=== PATIENT | female | born 1955 | race Two or more races ===

== ENCOUNTER 2016-12-08 05:07 | Emergency (ER) | payer OTHER ==
[2016-12-08] MEDS ORDERED: CYCLOBENZAPRINE HCL 10 MG TABLET PO ONE (06:29)
[2016-12-08] MEDS ORDERED: HYDROCODONE/ACETAMINOPHEN 5-325 MG 6 TAB/DSPK PO PRN (06:29)
[2016-12-08] MEDS ORDERED: KETOROLAC TROMETHAMINE 60 MG/2 ML SDV IM ONE (06:29)
--- NOTE | 2016-12-08 06:29 | ER Document Report ---
ED Neck/Back Problem - General Mode of Arrival: Ambulatory Information source: Patient TRAVEL OUTSIDE OF THE [place] IN LAST 30 DAYS: No - HPI Patient complains to provider of: Pain, Neck Onset: Yesterday - morning Where: Home Onset: Sudden Associated symptoms: Other - see above - General Chief Complaint: Neck Pain < 24hrs old Stated Complaint: NECK PAIN Notes: 61 year old female with history of hyperlipidemia, diabetes, hypertension, and migraine headaches presents to the ED complaining of left sided neck pain that started suddenly yesterday morning while sleeping. Patient describes the pain as "sharp and shooting" and it radiates to her head. Patient has tried using a muscle relaxer and Tylenol, but to no relief. Patient also reports to trying a hot shower to soothe the pain away, but explains that it did not work. Patient' s receives primary care at [facility]. (VALERIA CARLOS) - Related Data Allergies/Adverse Reactions: No Known Allergies Allergy (Verified 12/08/16 05:16) Past Medical History - General Information source: Patient - Social History Smoking Status: Never Smoker Chew tobacco use (# tins/day): No Frequency of alcohol use: Social Drug Abuse: None Family History: Reviewed & Not Pertinent Patient has suicidal ideation: No - Past Medical History Cardiac Medical History: Reports: Hx Hypercholesterolemia, Hx Hypertension Pulmonary Medical History: Reports: Hx Bronchitis Neurological Medical History: Reports: Hx Migraine Endocrine Medical History: Reports: Hx Diabetes Mellitus Type 2 Renal/ Medical History: Denies: Hx Peritoneal Dialysis Psychiatric Medical History: Denies: Hx Depression Past Surgical History: Reports: Hx Cardiac Catheterization, Hx Hysterectomy - Immunizations Hx Diphtheria, Pertussis, Tetanus Vaccination: No Review of Systems - Review of Systems Constitutional: No symptoms reported EENT: No symptoms reported Cardiovascular: No symptoms reported Respiratory: No symptoms reported Gastrointestinal: No symptoms reported Genitourinary: No symptoms reported Female Genitourinary: No symptoms reported Musculoskeletal: See HPI, Neck pain - left Skin: No symptoms reported Hematologic/Lymphatic: No symptoms reported Neurological/Psychological: See HPI, Headaches -: Yes All other systems reviewed and negative Physical Exam - General General appearance: Alert In distress: None - HEENT Head: Normocephalic, Atraumatic Eyes: Normal Extraocular movements intact: Yes Pupils: PERRL Neck: Other - Tenderness to palpation of the left posterior cervical chain that radiates to the left trapezius and scapular muscles. Severe stabbing left neck pain while trying to rotate head. - Respiratory Respiratory status: No respiratory distress - Cardiovascular Rhythm: Regular - Abdominal Inspection: Normal - Back Back: Normal - Extremities General upper extremity: Normal inspection, Normal ROM General lower extremity: Normal inspection, Normal ROM - Neurological Neuro grossly intact: Yes - Psychological Associated symptoms: Normal affect, Normal mood - Skin Skin Temperature: Warm Skin Moisture: Dry Skin Color: Normal - Vital signs Vitals: Temp Pulse Resp BP Pulse Ox 97.6 F 74 16 150/92 H 97 12/08/16 05:09 12/08/16 05:09 12/08/16 05:09 12/08/16 05:09 12/08/16 05:09 Discharge - Discharge Clinical Impression: Torticollis, acute Condition: Stable Disposition: HOME, SELF-CARE Additional Instructions: Torticollis: You have torticollis, often called "wry neck." This is due to spasm of neck muscles -- locking the neck into a crooked position. Many different problems can lead to torticollis, such as a minor injury, sleeping with tension on the neck, or inflammation in the glands of the neck. Torticollis is usually treated with heat to relax the neck muscles, but the physician may recommend cold packs if a minor injury is suspected as the cause. Muscle relaxing and antiinflammatory medicine are often prescribed. You may need a neck collar to support your head. Improvement is usually rapid. Usually, the neck can be moved fully within two days, although some pain may persist for a few weeks. Call the doctor at once if you worsen, or if you develop high fever, severe headache, numbness or weakness, or other alarming symptoms. TAKE THE FLEXERIL AND HYDROCODONE WHEN YOU GET HOME. REST IN A COMFORTABLE POSITION. AVOID TURNING YOUR HEAD TO THE LEFT. TAKE THE MEDICATION PRESCRIBED. TAKE ALEVE OR MOTRIN FOR THE ANTI-INFLAMMATORY EFFECT. USE MOIST HEAT. FOLLOW UP WITH YOUR DOCTOR IF NOT IMPROVING. RETURN TO THE EMERGENCY ROOM IF ANY NEW OR WORSENING SYMPTOMS. Prescriptions: Cyclobenzaprine HCl [Flexeril 5 mg Tablet] 5 mg PO TID PRN #15 tablet PRN Reason: Oxycodone HCl/Acetaminophen [Percocet 5-325 mg Tablet] 1 - 2 tab PO ASDIR PRN # 15 tablet PRN Reason: Scribe Attestation: 12/08/16 06:34 I personally performed the services described in the documentation, reviewed and edited the documentation which was dictated to the scribe in my presence, and it accurately records my words and actions. (BREA MEZA) Scribe Documentation - Scribe Written by Susan:: Susan Mcclure, 12/08/2016 0654 acting as scribe for :: Elyse
[2016-12-08 07:12] VITALS: BP 150/99
== END 2016-12-08 07:07 | disposition home or self-care (01) ==
LOC: ER 05:07
DX: M43.6 Torticollis (principal); M54.2 Cervicalgia; R51 Headache; E11.9 Type 2 diabetes mellitus without complications; I10 Essential (primary) hypertension; Z86.69 Personal history of other diseases of the nervous system and sense organs
CPT/HCPCS: 99283; 96372; J1885

== ENCOUNTER → 2017-03-08 | Outpatient (CLI) | payer OTHER ==
--- NOTE | 2017-03-08 12:37 | RADIOLOGY REPORT (SQ) ---
EXAM DESCRIPTION: U/S RETROPERITON (RENAL/AORTA) COMPLETED DATE/TIME: 03/08/2017 9:58 am REASON FOR STUDY: CKD III (N18.3) N18.3 CHRONIC KIDNEY DISEASE, STAGE 3 (MODERATE) COMPARISON: None. TECHNIQUE: Dynamic and static grayscale images acquired of the kidneys and bladder and recorded on P ACS. Additional selected color Doppler and spectral images recorded. LIMITATIONS: None. FINDINGS: RIGHT KIDNEY: Normal size, 9.6 cm. Slightly lobulated contour. No hydronephrosis. No st ones are seen. LEFT KIDNEY: Normal size, 10.1 cm. Lobulated contour. No hydronephrosis. No stones. BLADDER: No masses. Ureteral jets were not seen. OTHER FINDINGS: No other significant finding. IMPRESSION: There is thinning of the renal cortices and there is a slightly lobulated appearance to each kidney. There is no hydronephrosis. No renal calculus is seen. TECHNICAL DOCUMENTATION: JOB ID: [id number] [employer]- All Rights Reserved
== END ==
LOC: RAD 07:33
PROVIDERS: ATTEND Internal Medicine Nephrology
DX: N18.3 Chronic kidney disease, stage 3 (moderate) (principal)
CPT/HCPCS: 76770

== ENCOUNTER 2020-02-07 13:15 | Inpatient (IN) | payer SELFPAY ==
--- NOTE | 2020-02-07 14:24 | ER Document Report ---
ED Cardiac - General Chief Complaint: Chest Pain Stated Complaint: SHORTNESS OF BREATH Time Seen by Provider: 02/07/20 13:53 Mode of Arrival: Ambulatory Information source: Patient Notes: 65-year-old female past medical history significant for migraines, hyperlipidemia, hypertension, diabetes, SVT status post ablation in 2012 presents to the emergency room with right midsternal chest pain with shortness of breath with exertion. Patient states her symptoms started yesterday afternoon around 1:00 while at work lasted approximately 30 minutes were alleviated after taking aspirin. States she started having chest pain again around 9 PM last night took aspirin and went to bed. Woke up this morning around 9 AM with worsening chest pain. Describes it as sharp, nonradiating. Denies any trauma or injury. No heavy lifting, no pushing or pulling with her right arm. States she took 2 more aspirin this morning. Not currently on any medications for her hypertension or hyperlipidemia. States her diabetes is diet-controlled. Currently without a primary care physician. Denies any recent travel. No COVID 19 exposure. No fevers. TRAVEL OUTSIDE OF THE [place] IN LAST 30 DAYS: No - Related Data Allergies/Adverse Reactions: No Known Allergies Allergy (Verified 12/08/16 05:16) Home Medications: bp meds, asa Past Medical History - General Information source: Patient - Social History Smoking Status: Never Smoker Chew tobacco use (# tins/day): No Frequency of alcohol use: Rare Drug Abuse: None Lives with: Family Family History: Reviewed & Not Pertinent, DM, Hypertension Patient has homicidal ideation: No - Past Medical History Cardiac Medical History: Reports: Hx Hypercholesterolemia, Hx Hypertension Pulmonary Medical History: Reports: Hx Bronchitis Neurological Medical History: Reports: Hx Migraine Endocrine Medical History: Reports: Hx Diabetes Mellitus Type 2 Renal/ Medical History: Denies: Hx Peritoneal Dialysis Psychiatric Medical History: Denies: Hx Depression Past Surgical History: Reports: Hx Cardiac Catheterization, Hx Hysterectomy - Immunizations Hx Diphtheria, Pertussis, Tetanus Vaccination: No Review of Systems - Review of Systems Constitutional: No symptoms reported EENT: No symptoms reported Cardiovascular: Chest pain Respiratory: Short of breath Gastrointestinal: No symptoms reported Musculoskeletal: No symptoms reported Skin: No symptoms reported -: Yes All other systems reviewed and negative Physical Exam - Vital signs Vitals: Temp Pulse Resp BP Pulse Ox 98.7 F 83 18 182/100 H 96 02/07/20 13:59 02/07/20 13:59 02/07/20 13:59 02/07/20 13:59 02/07/20 13:59 - General General appearance: Appears well, Alert In distress: Mild - HEENT Head: Normocephalic, Atraumatic Eyes: Normal Pupils: PERRL - Respiratory Respiratory status: No respiratory distress Chest status: Nontender Breath sounds: Normal Chest palpation: Normal - Cardiovascular Rhythm: Regular Heart sounds: Normal auscultation Murmur: No - Neurological Neuro grossly intact: Yes Cognition: Normal Orientation: AAOx4 [place] Coma Scale Eye Opening: Spontaneous [place] Coma Scale Verbal: Oriented Peter Coma Scale Motor: Obeys Commands [place] Coma Scale Total: 15 Speech: Normal Motor strength normal: LUE, RUE, LLE, RLE Sensory: Normal - Skin Skin Temperature: Warm Skin Moisture: Dry Skin Color: Normal Course - Re-evaluation Re-evalutation: 02/07/20 14:25 EKG interpreted by ER physician Dr. Yang. No acute STEMI 02/07/20 16:18 Heart score = 4 02/07/20 17:00 All test results were reviewed with the patient. Aware of need for admission. Patient is agreeable to admission. - Vital Signs Vital signs: Temp Pulse Resp BP Pulse Ox 98.0 F 63 16 189/97 H 97 02/07/20 16:21 02/07/20 16:21 02/07/20 16:21 02/07/20 18:08 02/07/20 16:21 - Laboratory Result Diagrams: 02/07/20 14:02 02/07/20 14:02 Laboratory results interpreted by me: 02/07/20 02/07/20 02/07/20 14:02 14:02 17:00 Chloride 109 H BUN 38 H Creatinine 2.74 H Est GFR ( Amer) 21 L Est GFR (MDRD) Non-Af 17 L NT-Pro-B Natriuret Pep 1100 H Total Protein 6.0 L Albumin 3.3 L Urine Protein >=500 H Urine Blood SMALL H Ur Leukocyte Esterase MODERATE H - Diagnostic Test Radiology reviewed: Reports reviewed - EKG Interpretation by Me EKG shows normal: Sinus rhythm Rate: Normal Additional EKG results interpreted by me: 02/07/20 14:24 EKG - Consults Lindsey Merritt Time consulted: 17:25 Reason for consultation: 02/07/20 17:52 admission Consulted provider: other - Agrees with evaluation and plan recommends call to Dr. Campo for admission Dr. aCmpo Time consulted: 17:30 - Wants call to Composing Machine Operator/Tender due to Hypertensive Urgency Reason for consultation: 02/07/20 17:54 admission for Chest pain, Renal injury, Hypertensive urgency. Dr. Peter Zavala Time consulted: 18:11 Reason for consultation: 02/07/20 18:11 admission for Chest pain, Hypertensive Urgency, Renal Insufficiency. Consulted provider: will come to ER Dr. Peter Ramirez Time consulted: 19:15 Reason for consultation: 02/07/20 20:16 update on admission criteria. Discharge - Discharge Clinical Impression: Hypertensive urgency, Renal insufficiency Chest pain Qualifiers: Chest pain type: other chest pain Qualified Code(s): R07.89 - Other chest pain Condition: Fair Disposition: ADMITTED INPATIENT Admitting Provider: Lucas (Composing Machine Operator/Tender) Unit Admitted: ICU
[2020-02-07] MEDS ORDERED: NITROGLYCERIN 0.4 MG/TAB 25 TAB/BOTTLE SL PRN (14:25)
[2020-02-07 14:40] LABS: ABSOLUTE BASOPHILS # (AUTO) 0.1 10^3/uL (0.0-0.2); ABSOLUTE EOSINOPHILS # (AUTO) 0.1 10^3/uL (0.0-0.6); ABSOLUTE LYMPHOCYTES (AUTO) 1.6 10^3/uL (0.5-4.7); ABSOLUTE MONOCYTES (AUTO) 0.5 10^3/uL (0.1-1.4); ABSOLUTE NEUT (AUTO) 6.4 10^3/uL (1.7-8.2); BASOPHILS % (AUTO) 0.7 % (0-2); EOSINOPHILS % (AUTO) 1.1 % (0-6); HEMATOCRIT 39.5 % (36.0-47.0); HEMOGLOBIN 13.7 g/dL (12.0-15.5); MEAN CORPUSCULAR HEMOGLOBIN 30.8 pg (27.0-33.4); MEAN CORPUSCULAR HGB CONC 34.6 g/dL (32.0-36.0); MEAN CORPUSCULAR VOLUME 89 fl (80-97); MONOCYTES % (AUTO) 5.8 % (3-13); PLATELET COUNT 297 10^3/uL (150-450); RED BLOOD COUNT 4.44 10^6/uL (3.72-5.28); SEGMENTED NEUTROPHILS % (AUTO) 74.4 % (42-78); TOTAL CELLS COUNTED % (AUTO) 100 %; WHITE BLOOD COUNT 8.6 10^3/uL (4.0-10.5)
[2020-02-07 14:46] LABS: ALBUMIN 3.3 g/dL (3.5-5.0); ALKALINE PHOSPHATASE 71 U/L (38-126); ASPARTATE AMINO TRANSFERASE 23 U/L (14-36); BILIRUBIN,TOTAL 0.3 mg/dL (0.2-1.3); BLOOD UREA NITROGEN 38 mg/dL (7-20); CALCIUM 9.2 mg/dL (8.4-10.2); CHLORIDE 109 mmol/L (98-107); CREATINE KINASE 127 U/L (30-135); GLUCOSE 109 mg/dL (75-110); POTASSIUM 4.7 mmol/L (3.6-5.0)
[2020-02-07 14:51] LABS: CARBON DIOXIDE 24 mmol/L (22-30)
[2020-02-07 14:53] LABS: ANION GAP 5 (5-19)
[2020-02-07 14:58] LABS: CREATINE KINASE MB 2.11 ng/mL (<4.55)
[2020-02-07 15:14] LABS: TROPONIN I < 0.012 ng/mL
[2020-02-07] MEDS ORDERED: HYDRALAZINE HCL INJ/PF 20 MG/1 ML SDV IV ONE (16:36)
--- NOTE | 2020-02-07 16:53 | RADIOLOGY REPORT (SQ) ---
EXAM DESCRIPTION: CHEST SINGLE VIEW IMAGES COMPLETED DATE/TIME: 02/07/2020 4:12 pm REASON FOR STUDY: chest pain COMPARISON: 08/24/2016 EXAM PARAMETERS: NUMBER OF VIEWS: One view. TECHNIQUE: Single frontal radiographic view of the chest acquired. RADIATION DOSE: NA LIMITATIONS: None. FINDINGS: LUNGS AND PLEURA: No opacities, masses or pneumothorax. No pleural effusion. MEDIASTINUM AND HILAR STRUCTURES: No masses. Contour normal. HEART AND VASCULAR STRUCTURES: Heart normal in size. Normal vasculature. BONES: No acute findings. HARDWARE: None in the chest. OTHER: No other significant finding. IMPRESSION: NO ACUTE RADIOGRAPHIC FINDING IN THE CHEST. TECHNICAL DOCUMENTATION: JOB ID: [id number] 2010 [employer]- All Rights Reserved Reading location - IP/workstation name: [email or web address]
[2020-02-07 17:29] LABS: APPEARANCE,URINE SLIGHTLY-CLOUDY; BILIRUBIN,URINE NEGATIVE (NEGATIVE); COLOR,URINE YELLOW; GLUCOSE, URINE NEGATIVE (NEGATIVE); KETONES,URINE NEGATIVE (NEGATIVE); LEUKOCYTE ESTERASE,URINE MODERATE (NEGATIVE); NITRITE,URINE NEGATIVE (NEGATIVE); PROTEIN,URINE >=500 mg/dL (NEGATIVE); URINE SPECIFIC GRAVITY 1.009; UROBILINOGEN,URINE NEGATIVE mg/dL (<2.0)
[2020-02-07] MEDS ORDERED: ONDANSETRON HCL INJ/PF 4 MG/2 ML SDV IV ONE (17:50)
[2020-02-07] MEDS ORDERED: ONDANSETRON HCL INJ/PF 4 MG/2 ML SDV IV PRN (20:10)
--- NOTE | 2020-02-07 21:22 | CRITICAL CARE ADMISSION REPORT ---
HPI Date:: 02/07/20 Time:: 21:00 Reason for ICU Reason:: Hypertensive urgency HPI: Ms. Zambrano is a 65-year-old female with a past medical history of migraines, hyperlipidemia, hypertension, [id number] diabetes, SVT status post ablation in 2012. She presented to the emergency room today with complaints of intermittent right sternal chest pain associated with shortness of breath with exertion. She states her symptoms started yesterday afternoon. and lasted approximately 30 minutes this was alleviated after taking aspirin. She again developed chest pain around 9 PM last night took aspirin and went to bed. Woke up this morning with worsening chest pain and increasing shortness of breath on exertion. She describes her chest pain as intermittent sharp and nonradiating, it is not reproducible. She denies any nausea, vomiting, diarrhea, denies fever or chills. Denies any recent travel denies any sick contacts has had no COVID- 19 exposure. She states she has not been taking her antihypertensives as he has recently lost her job has no insurance and is unable to fill her prescriptions. Upon presentation to the ED her blood pressure was noted to be at 182/100 with a mean of 127 heart rate of 83 her blood pressure did go up to 216/113 with a heart rate of 63 she was given 20 mg of hydralazine as well as 1 sublingual nitroglycerin her blood pressure did come down to 189/87. EKG showed normal sinus rhythm no ST elevations. She did have a previous cardiac cath that showed mild CAD no interventions performed. She does have known chronic kidney disease her baseline creatinine is unknown today's creatinine is 2.74. Chest x-ray was clear. She is admitted to the ICU for further management of her hypertensive urgency. - Diagnosis/Plan (1) Chest pain Qualifiers: Chest pain type: other chest pain Qualified Code(s): R07.89 - Other chest pain; R07.8 - Other chest pain Is this a current diagnosis for this admission?: Yes Plan: Chest pain has resolved and is most likely due to her hypertensive urgency. EKG negative for STEMI we will continue to monitor (2) Hypertensive urgency Is this a current diagnosis for this admission?: Yes Plan: We will reorder home antihypertensives and hydralazine as needed (3) Renal insufficiency Is this a current diagnosis for this admission?: Yes Plan: She does states she has chronic kidney disease secondary to hypertension does not follow with a risk developer her creatinine today is 2.7 for unknown baseline. Will follow BMP as well as urine output (4) Non-insulin dependent diabetes mellitus Is this a current diagnosis for this admission?: Yes Plan: Diet controlled at home, will get Accu-Cheks before meals and at bedtime and ord er sliding scale if indicated. - . Plan Summary: 65-year-old female admitted to the ICU with hypertensive urgency. See assessment and plan above in addition will add heparin sq for DVT prophylaxis. Will transfer to floor in the morning if remains stable throughout the night Past Medical History Cardiac Medical History: Reports: Hyperlipidema, Hypertension Pulmonary Medical History: Reports: Bronchitis Neurological Medical History: Reports: Migraine Endocrine Medical History: Reports: Diabetes Mellitus Type 2 Psychiatric Medical History: Denies: Depression Past Surgical History Past Surgical History: Reports: Cardiac Catheterization, Hysterectomy Social/Family History - Social History Lives with: Family Smoking Status: Never Smoker Frequency of Alcohol Use: Occasional - Medication/Allergies Home Medications: No Home Medications 02/07/20 Allergies/Adverse Reactions: No Known Allergies Allergy (Verified 12/08/16 05:16) Physical Exam Vital Signs: Temp Pulse Resp BP Pulse Ox 98.0 F 63 16 189/97 H 97 02/07/20 16:21 02/07/20 16:21 02/07/20 16:21 02/07/20 18:08 02/07/20 16:21 Intake & Output 02/06/20 02/07/20 02/08/20 06:59 06:59 06:59 Weight 84.1 kg Weight/Height Weight 84.1 kg Height 5 ft Laboratory/Radiographs Laboratory Results: 02/07/20 14:02 02/07/20 14:02 02/07/20 02/07/20 02/07/20 14:02 14:02 17:00 WBC 8.6 RBC 4.44 Hgb 13.7 Hct 39.5 MCV 89 MCH 30.8 MCHC 34.6 RDW 13.0 Plt Count 297 Seg Neutrophils % 74.4 Sodium 137.7 Potassium 4.7 Chloride 109 H Carbon Dioxide 24 Anion Gap 5 BUN 38 H Creatinine 2.74 H Est GFR ( Amer) 21 L Glucose 109 Calcium 9.2 Total Bilirubin 0.3 AST 23 Alkaline Phosphatase 71 Total Protein 6.0 L Albumin 3.3 L Urine Color YELLOW Urine Appearance SLIGHTLY-CLOUDY Urine pH 7.0 Ur Specific [place] 1.009 Urine Protein >=500 H Urine Glucose (UA) NEGATIVE Urine Ketones NEGATIVE Urine Blood SMALL H Urine Nitrite NEGATIVE Ur Leukocyte Esterase MODERATE H Urine WBC (Auto) 18 Urine RBC (Auto) 1 02/07/20 02/07/20 02/07/20 14:02 14:02 14:02 Creatine Kinase 127 CK-MB (CK-2) 2.11 Troponin I < 0.012 NT-Pro-B Natriuret Pep 1100 H 02/07/20 17:20 Creatine Kinase CK-MB (CK-2) Troponin I < 0.012 NT-Pro-B Natriuret Pep Impressions: Chest X-Ray 02/07/20 15:35 IMPRESSION: NO ACUTE RADIOGRAPHIC FINDING IN THE CHEST. All labs, radiographs, diagnostic studies and EKGs were personally reviewed: Yes In addition, reports of radiographic and diagnostic studies were read: Yes Critical Time Critical Time (minutes): 40 -: The care of a critically ill patient is dynamic. This note represents a static moment in the admission process. Orders and treatments may be given simultaneously and urgently, and time is not physician relations representative of the treatment process. This patient requires Critical Care secondary to life threatening organ or limb dysfunction. Without Critical Care services, the patient is at risk for increased mortality and morbidity.
--- NOTE | 2020-02-07 21:24 | EKG REPORT ---
SEVERITY:- BORDERLINE ECG - SINUS RHYTHM PROBABLE LEFT ATRIAL ABNORMALITY : Confirmed by: Tomi Ventura MD 07-Feb-2020 21:24:11
[2020-02-07] MEDS ORDERED: HYDRALAZINE HCL INJ/PF 20 MG/1 ML SDV IV PRN (22:18)
[2020-02-07] MEDS ORDERED: ACETAMINOPHEN WITH CODEINE #3 TABLET PO ONE (22:24)
[2020-02-07] MEDS: HEPARIN SOD (PORCINE) 5,000 UNIT/ML 1 ML VIAL SUBCUT SCH (22:44)
[2020-02-07] MEDS ORDERED: AMLODIPINE BESYLATE 10 MG TABLET PO ONE (23:00)
[2020-02-07] MEDS ORDERED: PROMETHAZINE HCL INJ 25 MG/1 ML VIAL ONE (23:07)
[2020-02-07] MEDS ORDERED: PROMETHAZINE HCL INJ 25 MG/1 ML VIAL IV PRN (23:09)
[2020-02-08 05:17] LABS: ABSOLUTE BASOPHILS # (AUTO) 0.1 10^3/uL (0.0-0.2); ABSOLUTE LYMPHOCYTES (AUTO) 0.9 10^3/uL (0.5-4.7); ABSOLUTE MONOCYTES (AUTO) 0.4 10^3/uL (0.1-1.4); ABSOLUTE NEUT (AUTO) 10.2 10^3/uL (1.7-8.2); BASOPHILS % (AUTO) 0.6 % (0-2); HEMATOCRIT 40.5 % (36.0-47.0); HEMOGLOBIN 13.9 g/dL (12.0-15.5); LYMPHOCYTES % (AUTO) 7.9 % (13-45); MEAN CORPUSCULAR HEMOGLOBIN 30.4 pg (27.0-33.4); MEAN CORPUSCULAR HGB CONC 34.4 g/dL (32.0-36.0); MEAN CORPUSCULAR VOLUME 89 fl (80-97); MONOCYTES % (AUTO) 3.2 % (3-13); PLATELET COUNT 288 10^3/uL (150-450); RED BLOOD COUNT 4.57 10^6/uL (3.72-5.28); RED CELL DISTRIBUTION WIDTH 13.4 % (11.5-14.0); SEGMENTED NEUTROPHILS % (AUTO) 88.3 % (42-78); TOTAL CELLS COUNTED % (AUTO) 100 %; WHITE BLOOD COUNT 11.5 10^3/uL (4.0-10.5)
[2020-02-08 05:28] LABS: ALBUMIN 3.5 g/dL (3.5-5.0); ALKALINE PHOSPHATASE 67 U/L (38-126); ANION GAP 5 (5-19); ASPARTATE AMINO TRANSFERASE 24 U/L (14-36); BILIRUBIN,TOTAL 0.5 mg/dL (0.2-1.3); BLOOD UREA NITROGEN 39 mg/dL (7-20); CALCIUM 9.8 mg/dL (8.4-10.2); CARBON DIOXIDE 25 mmol/L (22-30); CHLORIDE 110 mmol/L (98-107); GLUCOSE 125 mg/dL (75-110); PHOSPHORUS 4.1 mg/dL (2.5-4.5); POTASSIUM 5.2 mmol/L (3.6-5.0); TOTAL PROTEIN 6.1 g/dL (6.3-8.2)
[2020-02-08] MEDS: HEPARIN SOD (PORCINE) 5,000 UNIT/ML 1 ML VIAL SUBCUT SCH ×3 (05:33→21:59)
--- NOTE | 2020-02-08 08:55 | RADIOLOGY REPORT (SQ) ---
EXAM DESCRIPTION: CHEST SINGLE VIEW IMAGES COMPLETED DATE/TIME: 02/08/2020 6:49 am REASON FOR STUDY: Chest pain COMPARISON: Previous day. EXAM PARAMETERS: NUMBER OF VIEWS: One view. TECHNIQUE: Single frontal radiographic view of the chest acquired. RADIATION DOSE: NA LIMITATIONS: None. FINDINGS: LUNGS AND PLEURA: No opacities, masses or pneumothorax. No pleural effusion. MEDIASTINUM AND HILAR STRUCTURES: No masses. Contour normal. HEART AND VASCULAR STRUCTURES: Heart normal in size. Normal vasculature. BONES: No acute findings. HARDWARE: None in the chest. OTHER: No other significant finding. IMPRESSION: NO ACUTE RADIOGRAPHIC FINDING IN THE CHEST. TECHNICAL DOCUMENTATION: JOB ID: [id number] 2010 [employer]- All Rights Reserved Reading location - IP/workstation name: [email or web address]
[2020-02-08] MEDS ORDERED: ACETAMINOPHEN 325 MG TABLET ONE (09:12)
[2020-02-08] MEDS: AMLODIPINE BESYLATE 10 MG TABLET PO SCH (09:16)
[2020-02-08] MEDS ORDERED: LABETALOL HCL INJ 20 MG/4 ML DISP.SYRIN IV PRN (09:17)
--- NOTE | 2020-02-08 12:28 | RADIOLOGY REPORT (SQ) ---
EXAM DESCRIPTION: U/S LTD DUPLEX ART/JAMES FLOW IMAGES COMPLETED DATE/TIME: 02/08/2020 11:51 am REASON FOR STUDY: hypertension COMPARISON: None. TECHNIQUE: Realtime and static grayscale images acquired. Selected color Doppler, velocities and spe ctral images recorded. LIMITATIONS: None. FINDINGS: RIGHT KIDNEY: RENAL ARTERY VELOCITIES: 58.5 cm/sec. Segmental artery velocity 21.9 cm/sec. RENAL VEIN: Color doppler flow present, patent. VELOCITY RATIO: 0.41. Normal waveforms. KIDNEY: 10 cm. Echogenic. 2.6 cm cyst. LEFT KIDNEY: RENAL ARTERY VELOCITIES: 60.1 cm/sec. Segmental artery velocity 24.9 cm/sec. RENAL VEIN: Color doppler flow present, patent. VELOCITY RATIO: 0.40. Normal waveforms. KIDNEY: 10.9 cm echogenic. Twp cm cyst. BLADDER: Normal. OTHER: No other significant finding. IMPRESSION: Chronic medical renal disease. No evidence for renal artery stenosis. COMMENT: NORMAL RENAL ARTERY/AORTA VELOCITY RATIO IS LESS THAN OR EQUAL TO 3.5. TECHNICAL DOCUMENTATION: JOB ID: [id number] 2010 [employer]- All Rights Reserved Reading location - IP/workstation name: [email or web address]
--- NOTE | 2020-02-08 18:01 | PDOC CRITICAL CARE PROG REPORT ---
General Date:: 02/08/20 ICU Day:: 2 Hospital Day:: 2 Resuscitation Status: Full Code Events in the past 12 to 24 Hours:: 02/06: Presented to the emergency room with accelerated hypertension, SBP 220+. 02/07: Sleeping comfortably. Snoring heavily. Easily arousable. Reported having headaches overnight despite improvement in blood pressure (may have been adverse effects of hydralazine and nitroglycerin). Currently chest pain-free. No shortness of breath. No headache. SBP 150s. Review of systems relevant to events:: Gastrointestinal: Nausea Cardiovascular: Chest tightness Neurologic: Headache, dizziness Reason for ICU Addmission:: Hypertensive urgency - Medications: Medications reviewed and adjusted accordingly: Yes Physical Exam Vital Signs: Temp Pulse Resp BP Pulse Ox 98.2 F 80 13 148/81 H 100 02/08/20 05:38 02/07/20 21:46 02/08/20 06:00 02/08/20 05:46 02/08/20 06:00 Intake & Output 02/07/20 02/08/20 02/09/20 06:59 06:59 06:59 Output Total 0 Balance 0 Weight 84.6 kg Weight/Height Weight 84.6 kg Height 1.52 m General appearance: PRESENT: no acute distress, well-developed, well-nourished Head exam: PRESENT: atraumatic, normocephalic Eye exam: PRESENT: conjunctiva pink, EOMI, PERRLA. ABSENT: scleral icterus Respiratory exam: PRESENT: clear to auscultation hazel. ABSENT: rales, rhonchi, wheezes Cardiovascular exam: PRESENT: RRR. ABSENT: diastolic murmur, rubs, systolic murmur Vascular exam: PRESENT: normal capillary refill Extremities exam: PRESENT: full ROM. ABSENT: calf tenderness, clubbing, pedal e yvonne Musculoskeletal exam: PRESENT: normal inspection. ABSENT: deformity Neurological exam: PRESENT: alert, awake, oriented to person, oriented to place, oriented to time, oriented to situation, CN II-XII grossly intact. ABSENT: motor sensory deficit Skin exam: PRESENT: dry, intact, warm. ABSENT: cyanosis, rash Laboratory/Radiographs Laboratory Results: 02/08/20 05:06 02/08/20 05:06 02/07/20 02/07/20 02/07/20 14:02 14:02 17:00 WBC 8.6 RBC 4.44 Hgb 13.7 Hct 39.5 MCV 89 MCH 30.8 MCHC 34.6 RDW 13.0 Plt Count 297 Seg Neutrophils % 74.4 Sodium 137.7 Potassium 4.7 Chloride 109 H Carbon Dioxide 24 Anion Gap 5 BUN 38 H Creatinine 2.74 H Est GFR ( Amer) 21 L Glucose 109 Calcium 9.2 Phosphorus Magnesium Total Bilirubin 0.3 AST 23 Alkaline Phosphatase 71 Total Protein 6.0 L Albumin 3.3 L Urine Color YELLOW Urine Appearance SLIGHTLY-CLOUDY Urine pH 7.0 Ur Specific [place] 1.009 Urine Protein >=500 H Urine Glucose (UA) NEGATIVE Urine Ketones NEGATIVE Urine Blood SMALL H Urine Nitrite NEGATIVE Ur Leukocyte Esterase MODERATE H Urine WBC (Auto) 18 Urine RBC (Auto) 1 02/08/20 02/08/20 05:06 05:06 WBC 11.5 H RBC 4.57 Hgb 13.9 Hct 40.5 MCV 89 MCH 30.4 MCHC 34.4 RDW 13.4 Plt Count 288 Seg Neutrophils % 88.3 H Sodium 140.2 Potassium 5.2 H Chloride 110 H Carbon Dioxide 25 Anion Gap 5 BUN 39 H Creatinine 2.76 H Est GFR ( Amer) 21 L Glucose 125 H Calcium 9.8 Phosphorus 4.1 Magnesium 2.3 Total Bilirubin 0.5 AST 24 Alkaline Phosphatase 67 Total Protein 6.1 L Albumin 3.5 Urine Color Urine Appearance Urine pH Ur Specific [place] Urine Protein Urine Glucose (UA) Urine Ketones Urine Blood Urine Nitrite Ur Leukocyte Esterase Urine WBC (Auto) Urine RBC (Auto) 02/07/20 02/07/20 02/07/20 14:02 14:02 14:02 Creatine Kinase 127 CK-MB (CK-2) 2.11 Troponin I < 0.012 NT-Pro-B Natriuret Pep 1100 H 02/07/20 17:20 Creatine Kinase CK-MB (CK-2) Troponin I < 0.012 NT-Pro-B Natriuret Pep Impressions: Chest X-Ray 02/08/20 06:00 IMPRESSION: NO ACUTE RADIOGRAPHIC FINDING IN THE CHEST. All labs, radiographs, diagnostic studies and EKGs were personally reviewed: Yes In addition, reports of radiographic and diagnostic studies were read: Yes Assessment and Plan - Diagnosis (1) Hypertensive urgency Is this a current diagnosis for this admission?: Yes Plan: Follow-up hydralazine PRN. Continue amlodipine. Labetalol 20 mg IV every 2 hours PRN for SBP greater than 180. 2D echo. (2) Renal insufficiency Is this a current diagnosis for this admission?: Yes Plan: Likely has chronic kidney disease secondary to longstanding hypertension and diabetes. Renal ultrasound with Doppler study. Avoid nephrotoxic drugs. (3) Type II diabetes mellitus Qualifiers: Diabetes mellitus fci insulin use: without fci use Diabetes mellitus complication status: with kidney complications Diabetes mellitus complication detail: with other kidney complication Qualified Code(s): E11.29 - Type 2 diabetes mellitus with other diabetic kidney complication Is this a current diagnosis for this admission?: Yes Plan: Accu-Cheks every 6. Sliding scale insulin. (4) Chest pain Qualifiers: Chest pain type: other chest pain Qualified Code(s): R07.89 - Other chest pain; R07.8 - Other chest pain Is this a current diagnosis for this admission?: Yes Plan: Resolved (6) Noncompliance Is this a current diagnosis for this admission?: Yes Plan: Case management consult Critical Time Critical Time (minutes): 45 Level of Care: ICU -: 1. The care of a critical patient is a dynamic process. This note is a claims customer service representative synopsis but static in nature. The timeframe for treatments given in order is not necessarily the actual time these treatments may have been done. 2. This patient requires critical care secondary to ongoing requirements for therapy not offered or safe outside the critical care environment. Transfer to a lower level of care will result in altered life or limb morbidity and mortality. 3. Multidisciplinary rounds completed. 4. ABCDE bundle addressed.
[2020-02-08] MEDS: HYDROCHLOROTHIAZIDE 25 MG TABLET PO SCH (19:33)
[2020-02-09 05:06] LABS: ABSOLUTE BASOPHILS # (AUTO) 0.1 10^3/uL (0.0-0.2); ABSOLUTE EOSINOPHILS # (AUTO) 0.1 10^3/uL (0.0-0.6); ABSOLUTE LYMPHOCYTES (AUTO) 2.7 10^3/uL (0.5-4.7); ABSOLUTE MONOCYTES (AUTO) 0.7 10^3/uL (0.1-1.4); ABSOLUTE NEUT (AUTO) 5.3 10^3/uL (1.7-8.2); BASOPHILS % (AUTO) 1.3 % (0-2); EOSINOPHILS % (AUTO) 1.5 % (0-6); HEMOGLOBIN 13.6 g/dL (12.0-15.5); LYMPHOCYTES % (AUTO) 29.9 % (13-45); MEAN CORPUSCULAR HEMOGLOBIN 30.3 pg (27.0-33.4); MEAN CORPUSCULAR VOLUME 89 fl (80-97); MONOCYTES % (AUTO) 8.2 % (3-13); PLATELET COUNT 268 10^3/uL (150-450); RED BLOOD COUNT 4.49 10^6/uL (3.72-5.28); RED CELL DISTRIBUTION WIDTH 13.6 % (11.5-14.0); SEGMENTED NEUTROPHILS % (AUTO) 59.1 % (42-78); TOTAL CELLS COUNTED % (AUTO) 100 %
[2020-02-09] MEDS: HEPARIN SOD (PORCINE) 5,000 UNIT/ML 1 ML VIAL SUBCUT SCH ×3 (09:07→21:16)
[2020-02-09] MEDS ORDERED: FUROSEMIDE INJ/PF 40 MG/4 ML SDV IV ONE (10:15)
[2020-02-09] MEDS ORDERED: ACETAMINOPHEN 325 MG TABLET ONE (10:25)
[2020-02-09] MEDS: HYDROCHLOROTHIAZIDE 25 MG TABLET PO SCH (10:28)
[2020-02-09] MEDS: AMLODIPINE BESYLATE 10 MG TABLET PO SCH (10:28)
--- NOTE | 2020-02-09 13:26 | PDOC CRITICAL CARE PROG REPORT ---
General Date:: 02/09/20 ICU Day:: 3 Hospital Day:: 3 Resuscitation Status: Full Code Events in the past 12 to 24 Hours:: 02/06: Presented to the emergency room with accelerated hypertension, SBP 220+. 02/07: Sleeping comfortably. Snoring heavily. Easily arousable. Reported having headaches overnight despite improvement in blood pressure (may have been adverse effects of hydralazine and nitroglycerin). Currently chest pain-free. No shortness of breath. No headache. SBP 150s. 02/08: Sleeping comfortably. Easily arousable. No headache. Has pain. No shortness of breath. BP 024986/80-92, on amlodipine and hydrochlorothiazide. K 5.2 this morning. Review of systems relevant to events:: Gastrointestinal: Nausea Cardiovascular: Chest tightness Neurologic: Headache, dizziness Reason for ICU Addmission:: Hypertensive urgency - Medications: Medications reviewed and adjusted accordingly: Yes Physical Exam Vital Signs: Temp Pulse Resp BP Pulse Ox 98.3 F 76 14 182/92 H 97 02/09/20 08:00 02/09/20 08:00 02/09/20 08:00 02/09/20 08:00 02/09/20 08:00 Intake & Output 02/08/20 02/09/20 02/10/20 06:59 06:59 06:59 Intake Total 1276 Output Total 0 1700 Balance 0 -424 Weight 84.6 kg 84.3 kg Weight/Height Weight 84.3 kg Height 1.52 m General appearance: PRESENT: no acute distress, well-developed, well-nourished Eye exam: PRESENT: conjunctiva pink, EOMI, PERRLA. ABSENT: scleral icterus Mouth exam: PRESENT: moist, tongue midline Neck exam: ABSENT: carotid bruit, JVD, lymphadenopathy, thyromegaly Respiratory exam: PRESENT: clear to auscultation hazel. ABSENT: rales, rhonchi, wheezes Cardiovascular exam: PRESENT: RRR. ABSENT: diastolic murmur, rubs, systolic murmur GI/Abdominal exam: PRESENT: normal bowel sounds, soft. ABSENT: distended, guarding, mass, organolmegaly, rebound, tenderness Extremities exam: PRESENT: full ROM. ABSENT: calf tenderness, clubbing, pedal edema Neurological exam: PRESENT: alert, awake, oriented to person, oriented to place, oriented to time, oriented to situation, CN II-XII grossly intact. ABSENT: motor sensory deficit Laboratory/Radiographs Laboratory Results: 02/09/20 04:33 02/08/20 05:06 02/09/20 02/09/20 04:33 04:33 WBC 9.0 RBC 4.49 Hgb 13.6 Hct 40.0 MCV 89 MCH 30.3 MCHC 34.0 RDW 13.6 Plt Count 268 Seg Neutrophils % 59.1 Magnesium 2.2 02/07/20 02/07/20 02/07/20 14:02 14:02 14:02 Creatine Kinase 127 CK-MB (CK-2) 2.11 Troponin I < 0.012 NT-Pro-B Natriuret Pep 1100 H 02/07/20 17:20 Creatine Kinase CK-MB (CK-2) Troponin I < 0.012 NT-Pro-B Natriuret Pep Impressions: Vascular Ultrasound 02/08/20 00:00 IMPRESSION: Chronic medical renal disease. No evidence for renal artery stenosis. Chest X-Ray 02/08/20 06:00 IMPRESSION: NO ACUTE RADIOGRAPHIC FINDING IN THE CHEST. All labs, radiographs, diagnostic studies and EKGs were personally reviewed: Yes In addition, reports of radiographic and diagnostic studies were read: Yes Assessment and Plan - Diagnosis (1) Hypertensive urgency Is this a current diagnosis for this admission?: Yes Plan: Continue amlodipine, hydrochlorothiazide. Furosemide 40 mg IV single dose today. Need to consider changing hydrochlorothiazide to furosemide. Renal ultrasound showed no evidence for renal artery stenosis. Labetalol 20 mg IV every 2 hours PRN for SBP greater than 180. 2D echo pending. (2) Renal insufficiency Is this a current diagnosis for this admission?: Yes Plan: Likely has chronic kidney disease secondary to longstanding hypertension and diabetes. Renal ultrasound with Doppler study consistent with chronic kidney disease. No evidence for renal artery stenosis. Avoid nephrotoxic drugs. (3) Type II diabetes mellitus Qualifiers: Diabetes mellitus retirement insulin use: without intermodal truck driver use Diabetes mellitus complication status: with kidney complications Diabetes mellitus complication detail: with other kidney complication Qualified Code(s): E11.29 - Type 2 diabetes mellitus with other diabetic kidney complication Is this a current diagnosis for this admission?: Yes Plan: Accu-Cheks every 6. Sliding scale insulin. (4) Chest pain Qualifiers: Chest pain type: other chest pain Qualified Code(s): R07.89 - Other chest pain; R07.8 - Other chest pain Is this a current diagnosis for this admission?: Yes (6) Noncompliance Is this a current diagnosis for this admission?: Yes (7) Hyperkalemia Is this a current diagnosis for this admission?: Yes Plan: Furosemide (see above) Plan Summary: OK for IMCU from pulmonary standpoint. Critical Time Critical Time (minutes): 45 Level of Care: ICU -: 1. The care of a critical patient is a dynamic process. This note is a housing management representative synopsis but static in nature. The timeframe for treatments given in order is not necessarily the actual time these treatments may have been done. 2. This patient requires critical care secondary to ongoing requirements for therapy not offered or safe outside the critical care environment. Transfer to a lower level of care will result in altered life or limb morbidity and mortality. 3. Multidisciplinary rounds completed. 4. ABCDE bundle addressed.
--- NOTE | 2020-02-09 16:37 | PDOC PROGRESS REPORT ---
Subjective Progress Note for:: 02/09/20 Subjective:: ICU transfer to medical floor. Patient presented 2 days ago with sudden onset chest pain. In the emergency department, she was noted to be significantly hypertensive with SBP is over 220. Creatinine was elevated which was later deemed to be secondary to CKD. Patient was admitted to the ICU for treatment of hypertensive emergency. Vascular ultrasound in ICU revealed no evidence of renal artery stenosis. Patient was put on medications with better control of blood pressures at this time. No changes in creatinine level. At this time patient is stable for the floor. Patient feels well and states that chest pain has resolved. Last time she experienced no chest pain was 12 years ago at which time she had a left heart catheterization. Uncertain what the results of the study was but she states that no stent was placed. Patient has not seen a PCP in 1 year. Patient also does not measure her blood pressures at home. Reason For Visit: HYPERTENSIVE URGENCY Physical Exam Vital Signs: Temp Pulse Resp BP Pulse Ox 98.1 F 81 15 145/88 H 98 02/09/20 12:00 02/09/20 12:00 02/09/20 16:00 02/09/20 15:47 02/09/20 16:00 Intake & Output 02/08/20 02/09/20 02/10/20 06:59 06:59 06:59 Intake Total 1276 240 Output Total 0 1700 1400 Balance 0 -424 -1160 Weight 84.6 kg 84.3 kg General appearance: PRESENT: no acute distress, cooperative Respiratory exam: PRESENT: unlabored. ABSENT: wheezes Neurological exam: PRESENT: alert, awake Psychiatric exam: ABSENT: anxious Results Laboratory Results: 02/09/20 04:33 02/08/20 05:06 02/09/20 02/09/20 04:33 04:33 WBC 9.0 RBC 4.49 Hgb 13.6 Hct 40.0 MCV 89 MCH 30.3 MCHC 34.0 RDW 13.6 Plt Count 268 Seg Neutrophils % 59.1 Magnesium 2.2 02/07/20 02/07/20 02/07/20 14:02 14:02 14:02 Creatine Kinase 127 CK-MB (CK-2) 2.11 Troponin I < 0.012 NT-Pro-B Natriuret Pep 1100 H 02/07/20 17:20 Creatine Kinase CK-MB (CK-2) Troponin I < 0.012 NT-Pro-B Natriuret Pep Impressions: Vascular Ultrasound 02/08/20 00:00 IMPRESSION: Chronic medical renal disease. No evidence for renal artery stenosis. Chest X-Ray 02/08/20 06:00 IMPRESSION: NO ACUTE RADIOGRAPHIC FINDING IN THE CHEST. Assessment and Plan - Diagnosis (1) Hypertensive emergency Is this a current diagnosis for this admission?: Yes Plan: Characterized by acute onset chest pain with BP of 226/113 on presentation. Hypertensive emergency has resolved at this time. Blood pressure control still needs optimization. Suspecting noncompliance with medications. Patient was on lisinopril which I will resume given her history of diabetes and >3+ proteinuric CKD. Monitor potassium closely. Start on oral Lasix given CKD Discontinue amlodipine and hydrochlorothiazide. (2) Hyperkalemia Is this a current diagnosis for this admission?: Yes Plan: Secondary to renal insufficiency. Lasix should help. (3) Renal insufficiency Is this a current diagnosis for this admission?: Yes Plan: Likely at baseline functioning with chronic kidney disease stage IV secondary to longstanding hypertension and diabetes. Will gently fluid challenge patient to see if it improvement of creatinine. No response of creatinine to Lasix. Renal ultrasound with Doppler study consistent with chronic kidney disease. No evidence for renal artery stenosis. Patient will need follow-up with nephrology. Educated patient on nephrotoxicity of NSAIDs which she takes. (4) Type II diabetes mellitus Qualifiers: Diabetes mellitus regional intermodal truck driver insulin use: without regional intermodal truck driver use Diabetes mellitus complication status: with kidney complications Diabetes mellitus complication detail: with other kidney complication Qualified Code(s): E11.29 - Type 2 diabetes mellitus with other diabetic kidney complication Is this a current diagnosis for this admission?: Yes Plan: Patient states that her diabetes is diet controlled. A.m. glucose yesterday seems adequate. Check hemoglobin A1c. - Time Time Spent with patient: 15-24 minutes
[2020-02-09] MEDS ORDERED: NORMAL SALINE 1000 ML 1,000 ML IV PRN (17:08)
[2020-02-09] MEDS: ACETAMINOPHEN 325 MG TABLET PO PRN (20:59)
[2020-02-09] MEDS: LISINOPRIL 10 MG TABLET PO SCH (21:18)
[2020-02-10] MEDS: HEPARIN SOD (PORCINE) 5,000 UNIT/ML 1 ML VIAL SUBCUT SCH (05:14)
[2020-02-10] MEDS: LISINOPRIL 10 MG TABLET PO SCH (09:02)
[2020-02-10] MEDS: ACETAMINOPHEN 325 MG TABLET PO PRN (09:07)
[2020-02-10 09:10] LABS: ANION GAP 8 (5-19); BLOOD UREA NITROGEN 40 mg/dL (7-20); CALCIUM 8.6 mg/dL (8.4-10.2); CARBON DIOXIDE 24 mmol/L (22-30); CHLORIDE 100 mmol/L (98-107); GLUCOSE 106 mg/dL (75-110); POTASSIUM 3.7 mmol/L (3.6-5.0)
[2020-02-10] MEDS ORDERED: FUROSEMIDE 40 MG TABLET PO SCH (10:00)
--- NOTE | 2020-02-10 10:40 | PDOC DISCHARGE SUMMARY ---
Impression - Admit/DC Date/PCP Admission Date/Primary Care Provider: 02/07/20 20:28 Discharge Date: 02/10/20 - Discharge Diagnosis (1) Hypertensive emergency Is this a current diagnosis for this admission?: Yes (2) Hyperkalemia Is this a current diagnosis for this admission?: Yes (3) CKD (chronic kidney disease), stage IV Is this a current diagnosis for this admission?: Yes (4) History of diabetes mellitus, type II Is this a current diagnosis for this admission?: Yes - Additional Information Resuscitation Status: Full Code Discharge Diet: Other (Comments) - Low sodium low potassium diet Referrals: [facility] [Provider Group] - 02/11/20 10:00 am Pao LOWE MD [ACTIVE STAFF] - Prescriptions: Furosemide [Lasix 40 mg Tablet] 40 mg PO DAILY #30 tablet Lisinopril 20 mg PO Q12 #60 tablet Home Medications: Furosemide [Lasix 40 mg Tablet] 40 mg PO DAILY #30 tablet 02/10/20 Lisinopril 20 mg PO Q12 #60 tablet 02/10/20 History of Present Illiness History of Present Illness: According to admitting provider: Ms. Zambrano is a 65-year-old female with a past medical history of migraines, hyperlipidemia, hypertension, [id number] diabetes, SVT status post ablation in 2012. She presented to the emergency room today with complaints of intermittent right sternal chest pain associated with shortness of breath with exertion. She states her symptoms started yesterday afternoon. and lasted approximately 30 minutes this was alleviated after taking aspirin. She again developed chest pain around 9 PM last night took aspirin and went to bed. Woke up this morning with worsening chest pain and increasing shortness of breath on exertion. She describes her chest pain as intermittent sharp and nonradiating, it is not reproducible. She denies any nausea, vomiting, diarrhea, denies fever or chills. Denies any recent travel denies any sick contacts has had no COVID-19 exposure. She states she has not been taking her antihypertensives as he has recently lost her job has no insurance and is unable to fill her prescriptions. Upon presentation to the ED her blood pressure was noted to be at 182/100 with a mean of 127 heart rate of 83 her blood pressure did go up to 216/113 with a heart rate of 63 she was given 20 mg of hydralazine as well as 1 sublingual nitroglycerin her blood pressure did come down to 189/87. EKG showed normal sinus rhythm no ST elevations. She did have a previous cardiac cath that showed mild CAD no interventions performed. She does have known chronic kidney disease her baseline creatinine is unknown today's creatinine is 2.74. Chest x-ray was clear. She is admitted to the ICU for further management of her hypertensive urgency. Hospital Course Hospital Course: Patient presented 3 days ago with sudden onset chest pain. In the emergency department, she was noted to be significantly hypertensive with SBP is over 220. Creatinine was elevated which was later deemed to be secondary to CKD. Patient was admitted to the ICU for treatment of hypertensive emergency. Vascular ultrasound in ICU revealed no evidence of renal artery stenosis. Patient was put on medications with better control of blood pressures at this time. No changes in creatinine level. At this time patient is stable for the floor. Patient feels well and states that chest pain has resolved. Last time she experienced no chest pain was 12 years ago at which time she had a left heart catheterization. Uncertain what the results of the study was but she states that no stent was placed. Patient has not seen a PCP in 1 year. Patient also does not measure her blood pressures at home. Patient's chest pain has resolved and stayed resolved with adequate control of blood pressure. Hypertensive emergency as evidenced by acute onset chest pain was due to noncompliance with her lisinopril which she has not been taking for over a year. I have reinitiated patient's lisinopril at an increased dose of 20 mg twice a day given proteinuric CKD. Patient has a history of type 2 diabetes mellitus but she states that she has diet-controlled diet and is not on any medications for it for over a year now. Her blood sugar measurements were adequate and not suggestive of diabetes and her hemoglobin A1c was normal indicating that she currently does not have diabetes mellitus. Patient was noted to have elevated creatinine upon presentation around 2.7. This creatinine level did not change with administration of Lasix and also with administration of IV fluids. Renal ultrasound revealed evidence of CKD. Patient clearly does have CKD stage IV likely secondary to uncontrolled chronic hypertension. I have started patient on Lasix to be added to her hypertensive regimen given her CKD stage IV. Discharge planning was consulted regarding application for Medicaid. Patient is being referred to a PCP and a dry cleaning supervisor upon discharge. Physical Exam Vital Signs: Temp Pulse Resp BP Pulse Ox 98.1 F 78 15 132/83 H 98 02/10/20 08:53 02/10/20 08:53 02/10/20 08:53 02/10/20 08:53 02/10/20 08:53 Intake & Output 02/09/20 02/10/20 02/11/20 06:59 06:59 06:59 Intake Total 1543 967 6900 Output Total 1700 1400 Balance -424 -920 1000 Weight 84.3 kg 83.1 kg General appearance: PRESENT: no acute distress, cooperative Respiratory exam: PRESENT: unlabored Neurological exam: PRESENT: alert, awake Results Laboratory Results: WBC 9.0 10^3/uL (4.0-10.5) 02/09/20 04:33 RBC 4.49 10^6/uL (3.72-5.28) 02/09/20 04:33 Hgb 13.6 g/dL (12.0-15.5) 02/09/20 04:33 Hct 40.0 % (36.0-47.0) 02/09/20 04:33 MCV 89 fl (80-97) 02/09/20 04:33 MCH 30.3 pg (27.0-33.4) 02/09/20 04:33 MCHC 34.0 g/dL (32.0-36.0) 02/09/20 04:33 RDW 13.6 % (11.5-14.0) 02/09/20 04:33 Plt Count 268 10^3/uL (150-450) 02/09/20 04:33 Lymph % (Auto) 29.9 % (13-45) 02/09/20 04:33 [place] % (Auto) 8.2 % (3-13) 02/09/20 04:33 Eos % (Auto) 1.5 % (0-6) 02/09/20 04:33 Baso % (Auto) 1.3 % (0-2) 02/09/20 04:33 Absolute Neuts (auto) 5.3 10^3/uL (1.7-8.2) 02/09/20 04:33 Absolute Lymphs (auto) 2.7 10^3/uL (0.5-4.7) 02/09/20 04:33 Absolute Monos (auto) 0.7 10^3/uL (0.1-1.4) 02/09/20 04:33 Absolute Eos (auto) 0.1 10^3/uL (0.0-0.6) 02/09/20 04:33 Absolute Basos (auto) 0.1 10^3/uL (0.0-0.2) 02/09/20 04:33 Seg Neutrophils % 59.1 % (42-78) 02/09/20 04:33 Sodium 132.3 mmol/L (137-145) L 02/10/20 04:40 Potassium 3.7 mmol/L (3.6-5.0) 02/10/20 04:40 Chloride 100 mmol/L (98-107) 02/10/20 04:40 Carbon Dioxide 24 mmol/L (22-30) 02/10/20 04:40 Anion Gap 8 (5-19) 02/10/20 04:40 BUN 40 mg/dL (7-20) H 02/10/20 04:40 Creatinine 2.74 mg/dL (0.52-1.25) H 02/10/20 04:40 Est GFR ( Amer) 21 (>60) L 02/10/20 04:40 Est GFR (MDRD) Non-Af 17 (>60) L 02/10/20 04:40 Glucose 106 mg/dL (75-110) 02/10/20 04:40 Hemoglobin A1c % 5.5 % (4.7-6.0) 02/10/20 04:40 Calcium 8.6 mg/dL (8.4-10.2) 02/10/20 04:40 Phosphorus 4.1 mg/dL (2.5-4.5) 02/08/20 05:06 Magnesium 2.1 mg/dL (1.6-2.3) 02/10/20 04:40 Total Bilirubin 0.5 mg/dL (0.2-1.3) 02/08/20 05:06 Direct Bilirubin 0.0 mg/dL (0.0-0.4) 02/08/20 05:06 Neonat Total Bilirubin Not Reportable 02/08/20 05:06 Neonat Direct Bilirubin Not Reportable 02/08/20 05:06 Neonat Indirect Bili Not Reportable 02/08/20 05:06 AST 24 U/L (14-36) 02/08/20 05:06 ALT 20 U/L (<35) 02/08/20 05:06 Alkaline Phosphatase 67 U/L (38-126) 02/08/20 05:06 Creatine Kinase 127 U/L (30-135) 02/07/20 14:02 CK-MB (CK-2) 2.11 ng/mL (<4.55) 02/07/20 14:02 Troponin I < 0.012 ng/mL 02/07/20 17:20 NT-Pro-B Natriuret Pep 1100 pg/mL (<125) H 02/07/20 14:02 Total Protein 6.1 g/dL (6.3-8.2) L 02/08/20 05:06 Albumin 3.5 g/dL (3.5-5.0) 02/08/20 05:06 Urine Color YELLOW 02/07/20 17:00 Urine Appearance SLIGHTLY-CLOUDY 02/07/20 17:00 Urine pH 7.0 (5.0-9.0) 02/07/20 17:00 Ur Specific [place] 1.009 02/07/20 17:00 Urine Protein >=500 mg/dL (NEGATIVE) H 02/07/20 17:00 Urine Glucose (UA) NEGATIVE mg/dL (NEGATIVE) 02/07/20 17:00 Urine Ketones NEGATIVE mg/dL (NEGATIVE) 02/07/20 17:00 Urine Blood SMALL (NEGATIVE) H 02/07/20 17:00 Urine Nitrite NEGATIVE (NEGATIVE) 02/07/20 17:00 Urine Bilirubin NEGATIVE (NEGATIVE) 02/07/20 17:00 Urine Urobilinogen NEGATIVE mg/dL (<2.0) 02/07/20 17:00 Ur Leukocyte Esterase MODERATE (NEGATIVE) H 02/07/20 17:00 Urine WBC (Auto) 18 /HPF 02/07/20 17:00 Urine RBC (Auto) 1 /HPF 02/07/20 17:00 Urine Bacteria (Auto) 2+ /HPF 02/07/20 17:00 Urine Mucus (Auto) RARE /LPF 02/07/20 17:00 Urine Ascorbic Acid NEGATIVE (NEGATIVE) 02/07/20 17:00 02/07/20 02/07/20 02/07/20 14:02 14:02 17:20 CK-MB (CK-2) 2.11 Troponin I < 0.012 < 0.012 NT-Pro-B Natriuret Pep 1100 H Impressions: Chest X-Ray 02/07/20 15:35 IMPRESSION: NO ACUTE RADIOGRAPHIC FINDING IN THE CHEST. Vascular Ultrasound 02/08/20 00:00 IMPRESSION: Chronic medical renal disease. No evidence for renal artery stenosis. Chest X-Ray 02/08/20 06:00 IMPRESSION: NO ACUTE RADIOGRAPHIC FINDING IN THE CHEST. Plan Time Spent: Less than 30 Minutes Stroke Is this a Stroke Patient?: No Acute Heart Failure - Is this a Heart Failure Patient?: No
[2020-02-10] MEDS ORDERED: ACETAMINOPHEN 325 MG TABLET PO PRN (10:46)
[2020-02-10] MEDS ORDERED: ONDANSETRON HCL INJ/PF 4 MG/2 ML SDV IV PRN (11:00)
--- NOTE | 2020-02-10 11:36 | PDOC CONSULTATION ---
Consultation Consult Date: 02/10/20 Provider Consulted: Pao LOWE Consult reason:: ORAL History of Present Illness Admission Date/PCP: 02/07/20 20:28 History of Present Illness: KARLEE CROSS is a 65 year old female with a past medical history significant for chronic hypertension, history of diabetes mellitus since 2002 and apparently has been just diet controlled, history of proteinuria that she knew from [place] and unsure of any work up, history of SVT status post ablation, history of possible CAD was admitted with history of right sided pleuritic chest pain and some shortness of breath. Evaluations in the ER revealed that she was severely hypertensive. Unfortunately she has been noncompliant with medications because of lack of physician and insurance since she moved down here from [place] a few years ago. She has been ruled out. A renal ultrasound accompanied by vascular of the renal arteries was unremarkable but for a couple of cysts. Blood pressures is now well controlled on medications. She feels great and wants to go home. She works at [employer] in [place] and is a part-time employee and therefore has no insurance. She used to go to [facility] once upon a time. Labs and medications were reviewed. Admission creatinine was 2.7 and it remained stable. Urine shows significant proteinuria. She admits to the fact that she was told at one time that she had chronic kidney disease and proteinuria when she used to see a physician.Currently she denies any history of chest pain or shortness of breath.Blood pressures very well controlled currently on her medications that she is on now including BRANDY inhibitor's. Past Medical History Cardiac Medical History: Reports: Hyperlipidemia, Hypertension-primary Pulmonary Medical History: Reports: Bronchitis Neurological Medical History: Reports: Migraine Endocrine Medical History: Reports: Diabetes Mellitus Type 2 Psychiatric Medical History: Denies: Depression Past Surgical History Past Surgical History: Reports: Cardiac Catheterization, Hysterectomy Social History Lives with: Family Smoking Status: Never Smoker Electronic Cigarette use?: No Frequency of Alcohol Use: Occasional - Advance Directive Resuscitation Status: Full Code Family History Parental Family History Reviewed: Yes - Negative for ESRD Children Family History Reviewed: No Sibling(s) Family History Reviewed.: No Medication/Allergy Home Medications: Furosemide [Lasix 40 mg Tablet] 40 mg PO DAILY #30 tablet 02/10/20 Lisinopril 20 mg PO Q12 #60 tablet 02/10/20 Allergies/Adverse Reactions: No Known Allergies Allergy (Verified 12/08/16 05:16) Review of Systems Constitutional: ABSENT: anorexia, chills, fatigue, fever(s), headache(s), night sweats, weakness Nose, Mouth, and Throat: ABSENT: mouth pain, sore throat Cardiovascular: PRESENT: chest pain, dyspnea on exertion. ABSENT: edema, orthropnea, palpitations Respiratory: PRESENT: dyspnea. ABSENT: cough, hemoptysis Gastrointestinal: ABSENT: abdominal pain, coffee ground emesis, diarrhea, dysphagia, heartburn, nausea, vomiting Genitourinary: ABSENT: dysuria, hematuria Musculoskeletal: ABSENT: deformity, joint swelling Integumentary: ABSENT: erythema, lesions, pruritus, rash Neurological: ABSENT: abnormal movements, abnormal speech, confusion, focal weakness, frequent falls Endocrine: ABSENT: polydipsia Hematologic/Lymphatic: ABSENT: easy bruising, lymphadenopathy Physical Exam Vital Signs: Temp Pulse Resp BP Pulse Ox 98.1 F 78 15 132/83 H 98 02/10/20 08:53 02/10/20 08:53 02/10/20 08:53 02/10/20 08:53 02/10/20 08:53 Intake & Output 02/09/20 02/10/20 02/11/20 06:59 06:59 06:59 Intake Total 7375 643 3360 Output Total 1700 1400 Balance -424 -920 1000 Weight 84.3 kg 83.1 kg General appearance: PRESENT: no acute distress Eye exam: PRESENT: EOMI, PERRLA. ABSENT: scleral icterus Ear exam: PRESENT: normal external ear exam Neck exam: ABSENT: meningismus, thyromegaly, tracheal deviation Respiratory exam: PRESENT: clear to auscultation hazel. ABSENT: crackles, decreased breath sounds Cardiovascular exam: PRESENT: +S1, +S2 GI/Abdominal exam: PRESENT: normal bowel sounds, soft. ABSENT: organomegaly, tenderness Extremities exam: ABSENT: pedal edema Neurological exam: PRESENT: alert, awake, oriented to person, oriented to place Psychiatric exam: PRESENT: appropriate affect Skin exam: ABSENT: cyanosis, erythema, normal color, rash Results Laboratory Results: 02/09/20 04:33 02/10/20 04:40 02/10/20 02/10/20 04:40 04:40 Sodium 132.3 L Potassium 3.7 Chloride 100 Carbon Dioxide 24 Anion Gap 8 BUN 40 H Creatinine 2.74 H Est GFR ( Amer) 21 L Glucose 106 Calcium 8.6 Magnesium 2.1 02/07/20 02/07/20 02/07/20 14:02 14:02 14:02 Creatine Kinase 127 CK-MB (CK-2) 2.11 Troponin I < 0.012 NT-Pro-B Natriuret Pep 1100 H 02/07/20 17:20 Creatine Kinase CK-MB (CK-2) Troponin I < 0.012 NT-Pro-B Natriuret Pep Impressions: Vascular Ultrasound 02/08/20 00:00 IMPRESSION: Chronic medical renal disease. No evidence for renal artery stenosis. Chest X-Ray 02/08/20 06:00 IMPRESSION: NO ACUTE RADIOGRAPHIC FINDING IN THE CHEST. Assessment & Plan - Diagnosis (1) CKD (chronic kidney disease), stage IV Is this a current diagnosis for this admission?: Yes Plan: She has stable CKD stage IV. She knows/aware of previously of kidney disease and proteinuria. Admits to the fact that she has not been compliant at all especially in controlling her hypertension. She says she has been watching her diet for the diabetes and has never been taking medications for it and her latrest A1c was 5.5. She was told about proteinuria by me and advised that it n eeds to be worked up. However patient does not want any serologies or renal biopsy given the fact that she is reached CKD stage IV. Told her that it will benefit to know the diagnosis but she would like to go home now. Currently no indication for renal replacement. Advised that she needs to follow-up with her family physician and with us when she is discharged. (2) Proteinuria Plan: Not been quantified. Advised that it be worked up. However patient insisting on going home. She believes its all because of uncontrolled blood pressure and just wants to be controlled and see what happens. Discussed implications. (3) Chest pain Qualifiers: Chest pain type: other chest pain Qualified Code(s): R07.89 - Other chest pain; R07.8 - Other chest pain Is this a current diagnosis for this admission?: Yes Plan: As per hospitalist. (4) Hypertensive emergency Is this a current diagnosis for this admission?: Yes Plan: Presently well controlled once she is on medications. Advised on compliance. We discussed implications of leaving her pressure untreated. (5) Noncompliance Is this a current diagnosis for this admission?: Yes Plan: Discussed goals and long-term complications. Discussed with her about renal complications and need for dialysis in the near future.
[2020-02-10 12:18] VITALS: BP 134/67
== END 2020-02-10 13:04 | disposition home or self-care (01) | DRG 305 ==
LOC: ER 13:15 → EH 20:28 → ICU 21:48 → 3W 02-09 16:25
PROVIDERS: ADMIT Internal Medicine; ATTEND Internal Medicine
DX: I16.1 Hypertensive emergency (principal); N18.4 Chronic kidney disease, stage 4 (severe); E87.5 Hyperkalemia; I12.9 Hypertensive chronic kidney disease with stage 1 through stage 4 chronic kidney disease, or unspecified chronic kidney disease; E11.22 Type 2 diabetes mellitus with diabetic chronic kidney disease; R07.89 Other chest pain; E78.5 Hyperlipidemia, unspecified; G43.909 Migraine, unspecified, not intractable, without status migrainosus; Z91.19 Patient's noncompliance with other medical treatment and regimen
CPT/HCPCS: 36415; 71045; 80048; 80053; 81001; 82550; 82553; 83036; 83735; 83880; 84100; 84484; 85025; 93005; 93010; 93976; 96374; 96375; 99291; J0360; J1644; J1940; J2405; J2550; J3490; J7030

== ENCOUNTER 2020-07-17 01:23 | Emergency (ER) | payer OTHER ==
[2020-07-17] MEDS ORDERED: KETOROLAC TROMETHAMINE 60 MG/2 ML SDV IM ONE (01:49)
[2020-07-17] MEDS ORDERED: LIDOCAINE 5% (700 MG) TRANSDERMAL ADH..PATCH TP ONE (01:50)
--- NOTE | 2020-07-17 01:57 | ER Document Report ---
ED General - General Chief Complaint: Neck Problem Stated Complaint: SEVERE NECK PAIN Time Seen by Provider: 07/17/20 01:49 Mode of Arrival: Ambulatory Information source: Patient Notes: 65-year-old female coming in today with neck stiffness and pain. It's been going on a couple of days. No trauma. No chest pain or shortness of breath. TRAVEL OUTSIDE OF THE [place] IN LAST 30 DAYS: No - Related Data Allergies/Adverse Reactions: No Known Allergies Allergy (Verified 12/08/16 05:16) Past Medical History - Social History Smoking Status: Unknown if Ever Smoked Family History: Reviewed & Not Pertinent, DM, Hypertension - Past Medical History Cardiac Medical History: Reports: Hx Hypercholesterolemia, Hx Hypertension Pulmonary Medical History: Reports: Hx Bronchitis Neurological Medical History: Reports: Hx Migraine Endocrine Medical History: Reports: Hx Diabetes Mellitus Type 2 Renal/ Medical History: Denies: Hx Peritoneal Dialysis Psychiatric Medical History: Denies: Hx Depression Past Surgical History: Reports: Hx Cardiac Catheterization, Hx Hysterectomy - Immunizations Hx Diphtheria, Pertussis, Tetanus Vaccination: No Review of Systems - Review of Systems Notes: Constitutional: No fevers. No chills. EENT: No eye redness. No eye pain. No ear pain. No sore throat. Cardiovascular: No chest pain. No palpitations. Respiratory: No cough. No shortness of breath. No respiratory distress. Gastrointestinal: No abdominal pain. No nausea, vomiting, or diarrhea. Genitourinary: Atraumatic. No lesions. No pain. No discharge. Musculoskeletal: Atraumatic. No swelling. No deformities. Neck and shoulder pain Skin: No rash or lesions. Lymphatic: No swollen lymph nodes. Neurologic: No headache. No syncope. Psychiatric: No suicidal or homicidal ideation. Physical Exam - Vital signs Vitals: Temp Pulse Resp BP Pulse Ox 98.6 F 79 17 143/72 H 97 07/17/20 01:36 07/17/20 01:36 07/17/20 01:36 07/17/20 01:36 07/17/20 01:36 - Notes Notes: General: Well-developed, well-nourished. In no acute distress. Non-toxic appearing. Cardiac: Well-perfused. Regular rate and rhythm. No murmurs, rubs, or gallops. Pulmonary: No respiratory distress. No cyanosis. Bilateral lung fiels are clear to auscultation. Abdominal: Non-distended. Non-rigid. Bowels sounds are present in all four quadrants. No guarding or rebound. HEENT: Head is atraumatic. Conjunctivae not reddened. No tearing. PERRL. EOMI. Orbits atraumatic. No periorbital swelling or erythema. Oropharynx is without erythema, swelling, or exudates. Neck: Supple. No adenopathy. No meningismus. Dermatologic: Warm with good turgor. No rash. Atraumatic. Chest: Atraumatic. No chest wall tenderness to palpation. Musculoskeletal: Tenderness to palpation of the right cervical strap muscles as well as the right trapezius musculature. Flexion and extension and rotation of the neck is limited secondary to pain. No midline spinal tenderness. Step-off. Genitourinary: Examination deferred Neurologic: No gross neurologic deficits. Psychiatric: Normal mood. Course - Re-evaluation Re-evalutation: 07/17/20 01:53 Patient is driving and cannot have anything affecting her ability to drive. We will give her a Toradol shot and Lidoderm patch tonight. We will send her home with prescription for some Zanaflex and a take-home pack of [place] - Vital Signs Vital signs: Temp Pulse Resp BP Pulse Ox 98.6 F 79 17 143/72 H 97 07/17/20 01:36 07/17/20 01:36 07/17/20 01:36 07/17/20 01:36 07/17/20 01:36 Discharge - Discharge Clinical Impression: Torticollis, Elevated blood pressure reading Condition: Good Disposition: HOME, SELF-CARE Instructions: Torticollis ([facility]), Muscle Relaxers ([facility]) Prescriptions: Tizanidine HCl [Zanaflex 4 Mg Tablet] 4 mg PO QIDP PRN #12 tablet PRN Reason: Forms: Elevated Blood Pressure
[2020-07-17] MEDS ORDERED: HYDROCODONE/ACETAMINOPHEN 5-325 MG (6 TAB/ER DISP) PO PRN (01:59)
[2020-07-17 02:24] VITALS: BP 124/79
== END 2020-07-17 02:24 | disposition home or self-care (01) ==
LOC: ER 01:23
DX: M43.6 Torticollis (principal); M54.2 Cervicalgia; M25.519 Pain in unspecified shoulder; I10 Essential (primary) hypertension; E11.9 Type 2 diabetes mellitus without complications
CPT/HCPCS: 99284; 96372; J1885